=== PATIENT | male | born 1960 | race Caucasian/White ===

== ENCOUNTER → 2020-02-03 10:45 | Outpatient (BNVA) | payer OTHER, SELFPAY | PROVIDERS: PCP Physician Assistant Medical; Visit Provider Physician Assistant | DX: S76.011A Strain of muscle, fascia and tendon of right hip, initial encounter (principal); W00.0XXA Fall on same level due to ice and snow, initial encounter | CPT/HCPCS: 73502; 99203 ==

== ENCOUNTER → 2020-02-10 14:50 | Outpatient (BNVA) | payer OTHER, SELFPAY | PROVIDERS: PCP Physician Assistant Medical; Visit Provider Physician Assistant | DX: S76.011S Strain of muscle, fascia and tendon of right hip, sequela (principal); X58.XXXS Exposure to other specified factors, sequela | CPT/HCPCS: 99213 ==